=== PATIENT | male | born 1990 | race Hispanic/Latino ===

== ENCOUNTER 2018-06-30 10:52 | Emergency (ER) | payer SELFPAY ==
[~2018-06-30] VITALS: Ht 167.6 cm; Wt 69.4 kg
[~2018-06-30 10:52] MED LIST: BENTYL 10 MG CA10 MG PO; FLEXERIL10 MG PO; KEFLEX500 MG PO; MOBIC15 MG PO; ZOFRAN4 M1 SL
[2018-06-30 11:07] LABS: ABSOLUTE BASOPHIL COUNT 0 /CUMM (0.0-0.2); ABSOLUTE EOSINOPHIL COUNT 0.3 /CUMM (0.0-0.7); ABSOLUTE GRANULOCYTE CT 9.3 /CUMM (1.4-6.5); ABSOLUTE LYMPH COUNT 1.9 /CUMM (1.2-3.4); ABSOLUTE MONOCYTE COUNT 0.8 /CUMM (0.10-0.60); BASOPHIL % 0.3 % (0.0-2.0); EOSINOPHIL % 2.5 % (0-5); GRANULOCYTE % 75.2 % (42.2-75.2); HEMATOCRIT 42.3 % (42-52); MEAN CORPUSCULAR HGB 31.4 PG (27.0-31.0); MEAN CORPUSCULAR HGB CONC 34.1 G/DL (33.0-37.0); MEAN CORPUSCULAR VOLUME 92.1 FL (80.0-94.0); MEAN PLATELET VOLUME 7.6 FL (7.4-10.4); PLATELET COUNT 320 /CUMM (130-400); RBC DISTRIBUTION WIDTH 13.9 % (11.5-14.5); RED BLOOD CELL CT 4.59 /CUMM (4.70-6.10); WHITE BLOOD CELL COUNT 12.4 /CUMM (4.8-10.8)
[2018-06-30] MEDS ORDERED: OMEPRAZOLE40 M1 PO (14:24)
[2018-06-30] MEDS ORDERED: ZOFRAN ODT4 M1 SL (14:24)
--- NOTE | 2018-06-30 14:25 | ED GI/GU/ABDOMINAL COMPLAINT ---
History of Present Illness General Chief Complaint: Abdominal Pain/Flank Pain Stated Complaint: ABD PAIN WITH ACID REFUX Source: patient Exam Limitations: no limitations Vital Signs & Intake/Output Vital Signs & Intake/Output Vital Signs Date Time Temp Pulse Resp B/P B/P Pulse O2 O2 Flow FiO2 Mean Ox Delivery Rate 06/30 1325 98.0 80 20 118/69 100 Room Air 06/30 1056 98.6 83 18 152/81 98 Room Air Allergies Coded Allergies: NO KNOWN ALLERGIES (02/21/11) Reconcile Medications Cephalexin (Keflex) 500 MG CAP 1 TAB PO TID CELLULITIS Omeprazole 40 MG CAPSULE.DR 1 CAP PO DAILY GERD Ondansetron (Zofran Odt) 4 MG TAB.RAPDIS 1 TAB SL TID PRN NAUSEA Triage Note: 28 YO MALE TO TRIAGE FOR EVAL OF ACID REFLUX AND ABD PAIN X6 MONTHS. STATES HAS TRIED OTC ACID REFLUX MEDICATION WITHOUT RELIEF. DENIES NVD. Triage Nurses Notes Reviewed? yes Onset: Gradual Duration: week(s): (6 MONTHS), changing over time, continues in ED, getting worse Timing: recent history Quality/Severity: burning Severity Numbers: 7 Location: epigastric Radiation: THROAT Activities at Onset: eating Prior Abdominal Problems: similar symptoms Past Sexual History: Unobtainable at this time Modifying Factors: Worsens With: eating. HPI: 28-year-old male with no medical history presents for evaluation of epigastric pain and acid reflux. Patient reports for the past 6 months she has had intermittent burning sensation in his epigastric area that radiates to his throat. The pain seems to happened when he eats. It is especially bad at night. He tried taking abrn-cei-irusqih Pepcid without improvement. He does note that his diet is not the best he does eat a lot of greasy fatty spicy foods as well as caffeine. He reports associated nausea but no vomiting no melena or bright red blood per rectum no diarrhea. No lower abdominal pain chest pain or shortness of breath. (Marquez Nova) Past History Travel History Traveled to [place] past 21 day No Medical History Any Pertinent Medical History? 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 No (Marquez Nova) Review of Systems Review of Systems Constitutional: Reports: no symptoms. EENTM: Reports: no symptoms. Respiratory: Reports: no symptoms. Cardiovascular: Reports: no symptoms. GI: Reports: see HPI, abdominal pain, nausea. Genitourinary: Reports: no symptoms. Musculoskeletal: Reports: no symptoms. Skin: Reports: no symptoms. Neurological/Psychological: Reports: no symptoms. Hematologic/Endocrine: Reports: no symptoms. Immunologic/Allergic: Reports: no symptoms. All Other Systems: Reviewed and Negative (Marquez Nova) Physical Exam Physical Exam General Appearance: well developed/nourished, no apparent distress, alert, awake Head: atraumatic, normal appearance Eyes: Bilateral: normal appearance, EOMI. Ears, Nose, Throat, Mouth: hearing grossly normal, moist mucous membrane Neck: normal inspection, supple, full range of motion Respiratory: normal breath sounds, chest non-tender, no respiratory distress, lungs clear Cardiovascular: regular rate/rhythm, normal peripheral pulses Peripheral Pulses: 2+ radial (R), 2+ radial (L) Gastrointestinal: normal bowel sounds, soft, no organomegaly, tenderness ( EPIGASTRIC ) Back: normal inspection, normal range of motion, no vertebral tenderness Extremities: normal range of motion Neurologic/Psych: no motor/sensory deficits, awake, alert, oriented x 3, normal gait, normal mood/affect Skin: intact, normal color, warm/dry Core Measures ACS in differential dx? No Sepsis Present: No Sepsis Focused Exam Completed? No (Marquez Nova) Progress Differential Diagnosis: cholecystitis, esophageal varices, gastritis, pancreatitis, peptic ulcer, PUD/GERD Plan of Care: Orders Procedure Date/time Status URINALYSIS 06/30 1055 Complete LIPASE 06/30 1055 Complete COMPREHENSIVE METABOLIC PANEL 06/30 1055 Complete CBC WITHOUT DIFFERENTIAL 06/30 1055 Complete Laboratory Tests 06/30/18 1318: Urine Color YEL, Urine Clarity CLEAR, Urine pH 7.0, Ur Specific [place] 1.020, Urine Protein NEG, Urine Ketones NEG, Urine Nitrite NEG, Urine Bilirubin NEG, Urine Urobilinogen 0.2, Ur Leukocyte Esterase NEG, Ur Microscopic EXAM NOT REQUIRED, Urine Hemoglobin NEG, Urine Glucose NEG 06/30/18 1100: Anion Gap 10, Estimated GFR > 60, BUN/Creatinine Ratio 20.0, Glucose 102 H, Calcium 9.4, Total Bilirubin 0.4, AST 23, ALT 35, Alkaline Phosphatase 75, Total Protein 7.2, Albumin 4.2, Globulin 3.0, Albumin/Globulin Ratio 1.4, Lipase 87, CBC w Diff NO MAN DIFF REQ, RBC 4.59 L, MCV 92.1, MCH 31.4 H, MCHC 34.1, RDW 13.9, MPV 7.6, Gran % 75.2, Lymphocytes % 15.1 L, Monocytes % 6.9, Eosinophils % 2.5, Basophils % 0.3, Absolute Granulocytes 9.3 H, Absolute Lymphocytes 1.9, Absolute Monocytes 0.8 H, Absolute Eosinophils 0.3, Absolute Basophils 0 Patient is here for evaluation of epigastric pain radiating to her throat that has been going on intermittently over the past 6 months. He denies melena or bright red blood per rectum. Vital signs are stable. Labs were ordered patient was medicated with Zofran and a GI cocktail. Labs show a white count of 12,000 but otherwise unremarkable. Patient reports near complete resolution of symptoms after GI cocktail. Patient will be started on omeprazole. Advised him to change his diet. Continue Maalox as needed. He' ll be referred to gastroenterology. Discussed return precautions in detail patient agrees the plan Initial ED EKG: none (Kwame MERAZ,Marquez) Departure Departure Disposition: HOME OR SELF CARE Condition: Stable Clinical Impression Primary Impression: GERD (gastroesophageal reflux disease) Qualifiers: Esophagitis presence: esophagitis presence not specified Qualified Code: K21.9 - Gastro-esophageal reflux disease without esophagitis Referrals: Patient Has No Primary Care Dr (PCP/Family) Agus Leory MD Additional Instructions: Take omeprazole as directed. Zofran for nausea. Avoid greasy fatty spicy foods avoid eating before bedtime avoid laying down after eating and avoid large meals. Make a follow-up with one of the [facility] practice physicians and bacteriology technician Dr. Leroy. Monitor your symptoms return with any concerns. Please go over all results of today's visit with your primary care doctor. Contact your primary care doctor to let them know you were here in the emergency room. There may be nonspecific findings which may not be related to your visit today here in the emergency room but may require further evaluation and chronic monitoring by your primary care doctor. If you had a laceration today the chance of foreign body always remains. You should follow-up with your primary care doctor for recheck in 3-5 days for a wound check. If you had an x-ray done there is a chance that a fracture could have been missed on initial read and you should follow-up with your primary care doctor for repeat x-rays if symptoms persist. If your blood pressure was elevated here in the emergency room please have rechecked by her primary care doctor within the next 48 hours by your primary care doctor. If you were prescribed a narcotic here in the emergency room or any type of controlled substances you're not allowed to drive while taking this medication or operate any type of heavy machinery. Narcotics can make you feel lightheaded dizziness nausea and can cause constipation. You may need to berry picker a stool softener. Thank you for choosing [facility] emergency room. Please return to the emergency room immediately if you have any other concerns worsening of symptoms. Departure Forms: Customer Survey General Discharge Information Prescriptions: Current Visit Scripts Omeprazole 1 CAP PO DAILY #30 CAP Ondansetron (Zofran Odt) 1 TAB SL TID PRN NAUSEA #10 TAB (Marquez Nova) PA/FLIGHT ATTENDANT/INFLIGHT SUPERVISOR Co-Sign Statement Statement: ED Attending supervision documentation- I saw and evaluated the patient. I have also reviewed all the pertinent lab results and diagnostic results. I agree with the findings and the plan of care as documented in the PA's/FLIGHT ATTENDANT/INFLIGHT SUPERVISOR's documentation. x I have reviewed the ED Record and agree with the PA's/FLIGHT ATTENDANT/INFLIGHT SUPERVISOR's documentation. [] Additions or exceptions (if any) to the PAs/FLIGHT ATTENDANT/INFLIGHT SUPERVISOR's note and plan are summarized below: [] (Chaz CARCAMO,Eriberto)
[2018-06-30 14:27] VITALS: BP 123/76
== END 2018-06-30 14:30 ==
LOC: ERH 10:52
PROVIDERS: Physician Assistant Medical
DX: K21.9 Gastro-esophageal reflux disease without esophagitis (principal)
CPT/HCPCS: 81003